=== PATIENT | male | born 2000 ===

== ENCOUNTER 2020-12-12 17:26 | Outpatient (REF) | payer BC, SELFPAY ==
[2020-12-14 15:45] LABS: GC Result Negative (Negative)
[2020-12-14 17:06] LABS: Chlamydia Result Positive (Negative)
== END 2020-12-12 17:46 ==
LOC: NCHCN 17:26
PROVIDERS: Visit Provider Nurse Practitioner Family
DX: R30.9 Painful micturition, unspecified (principal)
CPT/HCPCS: 87491; 87591